=== PATIENT | female | born 1960 | race Caucasian/White ===

== ENCOUNTER 2016-10-02 13:00 | Emergency (ER) | payer OTHER ==
[~2016-10-02] VITALS: Ht 162.6 cm; Wt 66.7 kg
[2016-10-02] MEDS ORDERED: VENLAFAXINE HCL25 MG ORAL (13:36)
[2016-10-02] MEDS ORDERED: RISPERDAL1 MG PO (13:36)
[2016-10-02] MEDS ORDERED: DEPAKOTE ER500 MG ORAL (13:36)
[2016-10-02] MEDS ORDERED: KEPPRA500 M4 ORAL (13:36)
--- NOTE | 2016-10-02 15:19 | Emergency Room Report ---
History of Present Illness General Chief Complaint: Seizure Source: Medical Record, Caregiver Present Illness HPI 55 YOF brought in by HCW for 2 seizures yesterday, 3pm and 9pm. No seizures today. HCW has known patient for years. Compliant with BID Keppra/Depakote. Was supposed to go to get Depakote level checked today but patient's loan manager "made her" go to ER to "get checked." Denies any trauma from fall. Last seizure was 2 months ago. Allergies: Coded Allergies: No Known Allergies (Unverified , 10/02/16) Patient History Past Medical History: seizures Past Surgical History: none Pertinent Family History: none Social History: Denies: alcohol use, drug use, smoking Now: No Immunizations: UTD Reviewed Nursing Documentation: PMH: Agreed, PSxH: Agreed Nursing Documentation-PMH History Of Psychiatric Problem: Yes - Mental retardation Hx Seizures: Yes Review of Systems All Other Systems: negative except mentioned in HPI Physical Exam Vital Signs Date Time Temp Pulse Resp B/P Pulse Ox O2 Delivery O2 Flow Rate FiO2 10/02/16 13:30 98.8 87 16 97 10/02/16 13:56 Room Air Sp02 EP Interpretation: reviewed, normal General Appearance: normal inspection, well appearing, no apparent distress, alert, GCS 15, non-toxic Head: normocephalic, atraumatic Eyes: bilateral eye EOMI, bilateral eye PERRL ENT: normal ENT inspection, hearing grossly normal, normal voice Neck: normal inspection, full range of motion, supple, no bony tend Respiratory: normal inspection, lungs clear, normal breath sounds, no respiratory distress, no retraction, no wheezing Cardiovascular #1: regular rate, rhythm, no edema Gastrointestinal: normal inspection, normal bowel sounds, non tender, soft, no guarding, no hernia Genitourinary: no CVA tenderness Musculoskeletal: normal inspection, back normal, normal range of motion, Isidra' s Sign negative Neurologic: normal inspection, alert, oriented x3, responsive, inside sales director III-XII nml as tested, motor strength/tone normal, speech normal Psychiatric: normal inspection, judgement/insight normal, mood/affect normal Skin: normal inspection, normal color, no rash Medical Decision Making Diagnostic Impression: Primary Impression: Seizure disorder ER Course Depakote level therapeutic at 90 No additional seizures in ED Likely breakthru seizures Seizures are not common/frequent - medication is likely therapeutic/effective Gave copy of lab to HCW, they have Neuro followup this week DC home Last Vital Signs Date Time Temp Pulse Resp B/P Pulse Ox O2 Delivery O2 Flow Rate FiO2 10/02/16 13:56 87 16 Room Air 10/02/16 13:56 98.8 97 Status: improved Disposition: HOME, SELF-CARE Condition: Improved Patient Instructions: Seizure, Adult KALEN KENT M.D. Oct 02, 2016 15:19
[2016-10-02 15:47] VITALS: BP 156/96
== END 2016-10-02 15:59 | disposition home or self-care (01) ==
LOC: EMR 13:58
DX: G40.909 Epilepsy, unspecified, not intractable, without status epilepticus (principal); F79 Unspecified intellectual disabilities
CPT/HCPCS: 36415; 80164; 82962; 99282

== ENCOUNTER 2017-03-22 13:21 | Emergency (ER) | payer OTHER ==
[~2017-03-22] VITALS: Ht 162.6 cm; Wt 59.0 kg
[~2017-03-22 13:21] MED LIST: DEPAKOTE ER500 MG ORAL; KEPPRA500 M4 ORAL; RISPERDAL1 MG PO; VENLAFAXINE HCL25 MG ORAL
[2017-03-22 13:47] VITALS: BP 130/86
[2017-03-22 14:57] LABS: BASOPHILS % (AUTO) 1.3 % (0.0-2.0); EOSINOPHILS % (AUTO) 1.3 % (0.0-3.0); MEAN CORPUSCULAR HEMOGLOBIN 31.4 PG (27.0-31.0); MEAN CORPUSCULAR HGB CONC 33.4 G/DL (32.0-36.0); MEAN CORPUSCULAR VOLUME 94 FL (80-99); MEAN PLATELET VOLUME 6.6 FL (6.5-10.1); MONOCYTES % (AUTO) 9.3 % (1.0-10.0); NEUTROPHILS % (AUTO) 59.1 % (45.0-75.0); PLATELET COUNT 211 K/UL (150-450); RED BLOOD COUNT 4.62 M/UL (4.20-5.40); RED CELL DISTRIBUTION WIDTH 11.5 % (11.6-14.8); WHITE BLOOD COUNT 5.9 K/UL (4.8-10.8)
[2017-03-22 15:13] LABS: ACETAMINOPHEN < 10 ug/mL (10-30); ALANINE AMINOTRANSFERASE 20 U/L (3-33); ALBUMIN/GLOBULIN RATIO 1.3 (1.0-2.7); ALCOHOL < 10 mg/dL; ANION GAP 12 (5-15); ASPARTATE AMINO TRANSFERASE 23 U/L (5-40); CARBON DIOXIDE 27 mEQ/L (20-30); CHLORIDE 100 mEQ/L (98-107); CREATININE 0.8 mg/dL (0.5-0.9); GLOMERULAR FILTRATION RATE > 60 mL/min (>60); HEMOLYSIS 5; POTASSIUM 4.1 mEQ/L (3.4-4.9); SODIUM 139 mEQ/L (135-145); TOTAL PROTEIN 6.7 g/dL (6.6-8.7); VALPROIC ACID 94 ug/mL (50-100)
--- NOTE | 2017-03-22 15:31 | Emergency Room Report ---
History of Present Illness General Chief Complaint: Seizure Source: Medical Record Present Illness HPI 56-year-old female presents ED status post seizure. Patient presents with bit sander. Patient resides in a care facility. Patient has cognitive delay. Patient has history of seizures and takes Keppra and Depakote. [facility] Specialist states that patient is compliant with her medications. Patient denies that her head or LOC. Patient presents here at baseline mentation. Patient states she feels okay. No fevers or chills. No other aggravating relieving factors. No other associated symptoms Allergies: Coded Allergies: No Known Allergies (Unverified , 10/02/16) Patient History Past Medical History: none Past Surgical History: none Pertinent Family History: none Social History: Denies: smoking, alcohol use, drug use Now: No Immunizations: UTD Reviewed Nursing Documentation: PMH: Agreed, PSxH: Agreed Nursing Documentation-PMH Past Medical History: No History, Except For Hx Seizures: Yes Review of Systems All Other Systems: negative except mentioned in HPI Physical Exam Vital Signs Date Time Temp Pulse Resp B/P (MAP) Pulse Ox O2 Delivery O2 Flow Rate FiO2 03/22/17 13:28 98.4 99 16 121/86 95 Room Air Sp02 EP Interpretation: reviewed, normal General Appearance: no apparent distress, alert, GCS 15, non-toxic Head: normocephalic, atraumatic Eyes: bilateral eye normal inspection, bilateral eye PERRL ENT: hearing grossly normal, normal pharynx, no angioedema, normal voice Neck: full range of motion, supple/symm/no masses Respiratory: chest non-tender, lungs clear, normal breath sounds, speaking full sentences Cardiovascular #1: regular rate, rhythm, no edema Cardiovascular #2: 2+ carotid (R), 2+ carotid (L), 2+ radial (R), 2+ radial (L) , 2+ dorsalis pedis (R), 2+ dorsalis pedis (L) Gastrointestinal: normal bowel sounds, non tender, soft, non-distended, no guarding, no rebound Rectal: deferred Genitourinary: normal inspection, no CVA tenderness Musculoskeletal: back normal, gait/station normal, normal range of motion, non- tender Neurologic: alert, oriented x3, responsive, motor strength/tone normal, sensory intact, speech normal, other - cognitive delay Psychiatric: judgement/insight normal, memory normal, mood/affect normal, no suicidal/homicidal ideation Reflexes: 3+ bicep (R), 3+ bicep (L), 3+ tricep (R), 3+ tricep (L), 3+ knee (R) , 3+ knee (L) Skin: normal color, no rash, warm/dry, well hydrated Lymphatic: no adenopathy Medical Decision Making Diagnostic Impression: Primary Impression: Seizure disorder ER Course Hospital Course 56-year-old F presents to ED status post seizure. Differential diagnosis includes- breakthrough seizure, alcohol abuse, noncompliance with medication Clinical course Patient placed on stretcher. Initial history and physical I ordered labs, IV fluids, EKG Labs-electrolytes okay, no leukocytosis, hemoglobin/hematocrit stable. depakote level therapeutic EKG - NSR, no aucte changes Patient allowed to rest is now awake alert oriented x3. Discussed findings with the bit sander. If Patient starting to have more seizures than usual then she needs to followup with her PMD for possible adjustment of medication, especially she's been compliant with her meds Diagnosis -seizure disorder stable and discharged to home. Followup with PMD. Return to ED if symptoms recur or worsen Labs Test 03/22/17 14:22 White Blood Count 5.9 K/UL (4.8-10.8) Red Blood Count 4.62 M/UL (4.20-5.40) Hemoglobin 14.5 G/DL (12.0-16.0) Hematocrit 43.4 % (37.0-47.0) Mean Corpuscular Volume 94 FL (80-99) Mean Corpuscular Hemoglobin 31.4 PG (27.0-31.0) Mean Corpuscular Hemoglobin Concent 33.4 G/DL (32.0-36.0) Red Cell Distribution Width 11.5 % (11.6-14.8) Platelet Count 211 K/UL (150-450) Mean Platelet Volume 6.6 FL (6.5-10.1) Neutrophils (%) (Auto) 59.1 % (45.0-75.0) Lymphocytes (%) (Auto) 29.0 % (20.0-45.0) Monocytes (%) (Auto) 9.3 % (1.0-10.0) Eosinophils (%) (Auto) 1.3 % (0.0-3.0) Basophils (%) (Auto) 1.3 % (0.0-2.0) Sodium Level 139 mEQ/L (135-145) Potassium Level 4.1 mEQ/L (3.4-4.9) Chloride Level 100 mEQ/L (98-107) Carbon Dioxide Level 27 mEQ/L (20-30) Anion Gap 12 (5-15) Blood Urea Nitrogen 12 mg/dL (7-23) Creatinine 0.8 mg/dL (0.5-0.9) Estimat Glomerular Filtration Rate > 60 mL/min (>60) Glucose Level 125 mg/dL (74-106) Calcium Level 9.0 mg/dL (8.6-10.2) Total Bilirubin 0.4 mg/dL (0.0-1.2) Aspartate Amino Transf (AST/SGOT) 23 U/L (5-40) Alanine Aminotransferase (ALT/SGPT) 20 U/L (3-33) Alkaline Phosphatase 67 U/L (35-104) Total Protein 6.7 g/dL (6.6-8.7) Albumin 3.9 g/dL (3.5-5.2) Globulin 2.8 g/dL Albumin/Globulin Ratio 1.3 (1.0-2.7) Salicylates Level < 1 mg/dL (10-30) Acetaminophen Level < 10 ug/mL (10-30) Valproic Acid (Depakene) Level 94 ug/mL (50-100) Serum Alcohol < 10 mg/dL EKG Diagnostic Results Rate: normal Rhythm: NSR ST Segments: no acute changes ASA given to the pt in ED: No Rhythm Strip Diag. Results EP Interpretation: yes Rhythm: NSR, no PVC's, no ectopy Last Vital Signs Date Time Temp Pulse Resp B/P (MAP) Pulse Ox O2 Delivery O2 Flow Rate FiO2 03/22/17 13:47 99.2 88 19 130/86 96 Room Air Status: improved Disposition: HOME, SELF-CARE Condition: Stable Referrals: [facility],REFERRING (PCP) Patient Instructions: Seizure, Adult KYLE CORTEZ M.D. Mar 22, 2017 15:31
[2017-03-22 15:53] VITALS: BP 139/79
--- NOTE | 2017-03-29 15:58 | Cardiology Report ---
APPROVED REPORT EKG Measurement Heart [id number] Normal sinus rhythm Cannot rule out Anterior infarct, age undetermined Abnormal ECG
== END 2017-03-22 15:35 | disposition home or self-care (01) ==
LOC: EMR 13:55
DX: G40.909 Epilepsy, unspecified, not intractable, without status epilepticus (principal); Z79.899 Other long term (current) drug therapy
CPT/HCPCS: 36415; 80053; 80164; 80329; 82962; 85025; 93005; 96374; 99284